=== PATIENT | female | born 1950 | race Caucasian/White ===

== ENCOUNTER 2024-04-28 12:45 | Inpatient (IN) | payer OTHER ==
[~2024-04-28] VITALS: Ht 167.6 cm; Wt 89.9 kg
[2024-04-28 13:27] VITALS: PULSE 117; RESP 16; O2SAT 95
[2024-04-28 13:55] LABS: Basophils # (auto) 0 10 ^3/uL (0-0.2); Basophils % (auto) 0.4 % (0.0-2.0); Eosinophils # (auto) 0.1 10 ^3/uL (0-0.8); Eosinophils % (auto) 2.3 % (0.0-7.0); Hematocrit 41.5 % (36.0-46.0); Hemoglobin 14.3 g/dL (12.2-16.2); Lymphocytes # (auto) 1.1 10 ^3/uL (0.4-5.4); Lymphocytes % (auto) 19.6 % (10.0-50.0); Mean Corpuscular Hemoglobin 32.2 pg (28.0-32.0); Mean Corpuscular Hgb Conc. 34.3 g/dL (32.0-36.0); Mean Corpuscular Volume 93.9 fL (80.0-100.0); Monocytes # (auto) 0.3 10 ^3/uL (0-1.3); Monocytes % (auto) 5.9 % (0.0-12.0); Neutrophils # (auto) 4.2 10 ^3/uL (1.6-8.6); Neutrophils % (auto) 71.8 % (37.0-80.0); Nucleated Red Blood Cells % 0.2 %; Platelet Count (auto) 192 10^3/uL (140-450); Red Blood Cells 4.42 10^6/uL (4.0-5.20); Red Cell Distribution Width 13.1 % (11.8-14.3); White Blood Cell 5.8 10^3/uL (4.4-10.8)
[2024-04-28] MEDS: dilTIAZem 25 MG/5 ML VIAL IV ONE ×2 (13:59→15:39)
[2024-04-28 14:10] LABS: INR 1.22 (0.9-1.15); Partial Thromboplastin Time 29.3 SEC (24.5-34.5); Prothrombin Time 12.7 sec (9.3-11.8)
[2024-04-28 14:14] LABS: Alanine Aminotransferase 12 U/L (7-40); Albumin 4.1 g/dL (3.2-4.8); Alkaline Phosphatase 75 U/L (46-116); Anion Gap 8 (5-15); Aspartate Aminotransferase 14 U/L (13-40); BUN/Creatinine Ratio 15.3 (10.0-20.0); Bilirubin, Total 1.1 mg/dL (0.2-1.0); Blood Urea Nitrogen 17 mg/dL (9-23); Calcium 9.1 mg/dL (8.7-10.4); Carbon Dioxide 22 mmol/L (20-30); Chloride 111 mmol/L (98-107); Glucose 134 mg/dL (74-106); Magnesium 1.8 mg/dL (1.6-2.6); Potassium 4.2 mmol/L (3.5-5.1); Sodium 141 mmol/L (136-145); Total Protein 6.2 g/dL (5.7-8.2)
[2024-04-28] MEDS: SODIUM CHLORIDE 0.9% 1,000 ML IV ONE (15:39)
[2024-04-28] MEDS ORDERED: HYDROcodone-ACET 5/325MG TAB PO PRN (19:15)
[2024-04-28] MEDS ORDERED: DOCUSATE SOD 100 MG CAP PO PRN (19:15)
[2024-04-28] MEDS ORDERED: HYDROmorphone HCL 2 MG/ML VL/or syr IV PRN (19:15)
[2024-04-28] MEDS ORDERED: ACETAMINOPHEN 325 MG TAB PO PRN (19:15)
[2024-04-28] MEDS ORDERED: ONDANSETRON HCL 4 MG/2 ML VIAL IV PRN (19:15)
[2024-04-28] MEDS ORDERED: dilTIAZem 25 MG/5 ML VIAL IV PRN (19:30)
[2024-04-28 19:35] VITALS: PULSE 89; RESP 16; O2SAT 97
[2024-04-28] MEDS: APIXABAN 5 MG TAB PO SCH (22:16)
[2024-04-28] MEDS: SODIUM CHLOR 0.9% PF (SALINE LOCK) 10ML VIAL/SYR IV SCH (22:18)
[2024-04-28 22:37] VITALS: PULSE 87; RESP 20; O2SAT 97
[2024-04-28 22:38] VITALS: BP 111/64; PULSE 87; RESP 20; TEMP 97.6; O2SAT 97
[2024-04-28] MEDS ORDERED: EZET-10 PO (23:59)
[2024-04-28] MEDS ORDERED: FESO4TAB3 PO (23:59)
[2024-04-28] MEDS ORDERED: ALEN70TA74 PO (23:59)
[2024-04-28] MEDS ORDERED: ALBU108A5 INH (23:59)
[2024-04-28] MEDS ORDERED: APIX5TAB PO (23:59)
[2024-04-28] MEDS ORDERED: LISI20TA56 PO (23:59)
[2024-04-28] MEDS ORDERED: ASPI-543 PO (23:59)
[2024-04-28] MEDS ORDERED: CETI10TA2 PO (23:59)
[2024-04-28] MEDS ORDERED: METO-158 PO (23:59)
[2024-04-28] MEDS ORDERED: ROSU20TA56 PO (23:59)
[2024-04-28] MEDS ORDERED: NITR100C6 PO (23:59)
[2024-04-28] MEDS ORDERED: FAMO-12 PO (23:59)
[2024-04-29] VITALS (7 sets, daily range): BP systolic 108–127; BP diastolic 46–78; PULSE 69–94; RESP 16–20; TEMP 97.6–98.9; O2SAT 94–99
[2024-04-29 06:28] LABS: Basophils # (auto) 0 10 ^3/uL (0-0.2); Basophils % (auto) 0.6 % (0.0-2.0); Eosinophils # (auto) 0.2 10 ^3/uL (0-0.8); Eosinophils % (auto) 3.8 % (0.0-7.0); Hematocrit 37.1 % (36.0-46.0); Hemoglobin 12.9 g/dL (12.2-16.2); Lymphocytes # (auto) 1.7 10 ^3/uL (0.4-5.4); Lymphocytes % (auto) 38.8 % (10.0-50.0); Mean Corpuscular Hemoglobin 32.8 pg (28.0-32.0); Mean Corpuscular Hgb Conc. 34.8 g/dL (32.0-36.0); Mean Corpuscular Volume 94.2 fL (80.0-100.0); Monocytes # (auto) 0.3 10 ^3/uL (0-1.3); Monocytes % (auto) 7.5 % (0.0-12.0); Neutrophils # (auto) 2.1 10 ^3/uL (1.6-8.6); Neutrophils % (auto) 49.3 % (37.0-80.0); Nucleated Red Blood Cells % 0.3 %; Platelet Count (auto) 140 10^3/uL (140-450); Red Blood Cells 3.94 10^6/uL (4.0-5.20); Red Cell Distribution Width 13.1 % (11.8-14.3); White Blood Cell 4.3 10^3/uL (4.4-10.8)
[2024-04-29 06:50] LABS: Alkaline Phosphatase 64 U/L (46-116); Anion Gap 6 (5-15); BUN/Creatinine Ratio 15.1 (10.0-20.0); Blood Urea Nitrogen 11 mg/dL (9-23); Calcium 8.7 mg/dL (8.7-10.4); Carbon Dioxide 23 mmol/L (20-30); Chloride 113 mmol/L (98-107); Glucose 99 mg/dL (74-106); Potassium 3.6 mmol/L (3.5-5.1); Sodium 142 mmol/L (136-145)
[2024-04-29 06:51] LABS: Albumin 3.3 g/dL (3.2-4.8); Aspartate Aminotransferase 12 U/L (13-40); Bilirubin, Total 1.1 mg/dL (0.2-1.0); Total Protein 5.6 g/dL (5.7-8.2)
[2024-04-29 06:59] LABS: Alanine Aminotransferase 9 U/L (7-40)
[2024-04-29] MEDS ORDERED: ENOXAPARIN SOD 40 MG/0.4 ML SYRINGE SC SCH (10:00)
[2024-04-30 05:00] VITALS: BP 120/77; PULSE 95; RESP 16; TEMP 97.5; O2SAT 97
[2024-04-30 06:07] LABS: Basophils # (auto) 0 10 ^3/uL (0-0.2); Basophils % (auto) 0.6 % (0.0-2.0); Eosinophils # (auto) 0.2 10 ^3/uL (0-0.8); Eosinophils % (auto) 4.4 % (0.0-7.0); Hematocrit 38.5 % (36.0-46.0); Hemoglobin 13.6 g/dL (12.2-16.2); Lymphocytes # (auto) 1.5 10 ^3/uL (0.4-5.4); Lymphocytes % (auto) 39.2 % (10.0-50.0); Mean Corpuscular Hemoglobin 33.3 pg (28.0-32.0); Mean Corpuscular Hgb Conc. 35.3 g/dL (32.0-36.0); Mean Corpuscular Volume 94.2 fL (80.0-100.0); Monocytes # (auto) 0.3 10 ^3/uL (0-1.3); Monocytes % (auto) 7.1 % (0.0-12.0); Neutrophils # (auto) 1.9 10 ^3/uL (1.6-8.6); Neutrophils % (auto) 48.7 % (37.0-80.0); Nucleated Red Blood Cells % 0.1 %; Platelet Count (auto) 140 10^3/uL (140-450); Red Blood Cells 4.08 10^6/uL (4.0-5.20); White Blood Cell 3.8 10^3/uL (4.4-10.8)
[2024-04-30 06:10] LABS: Alanine Aminotransferase < 9 U/L (7-40); Albumin 3.6 g/dL (3.2-4.8); Alkaline Phosphatase 65 U/L (46-116); Anion Gap 8 (5-15); Aspartate Aminotransferase 10 U/L (13-40); BUN/Creatinine Ratio 14.1 (10.0-20.0); Blood Urea Nitrogen 11 mg/dL (9-23); Calcium 8.6 mg/dL (8.7-10.4); Carbon Dioxide 23 mmol/L (20-30); Chloride 112 mmol/L (98-107); Glucose 110 mg/dL (74-106); Potassium 3.5 mmol/L (3.5-5.1); Sodium 143 mmol/L (136-145)
[2024-04-30 06:11] LABS: Bilirubin, Total 0.9 mg/dL (0.2-1.0); Total Protein 5.8 g/dL (5.7-8.2)
[2024-04-30 08:00] VITALS: PULSE 80; RESP 18; O2SAT 96
[2024-04-30 09:00] VITALS: BP 104/68; PULSE 80; RESP 18; TEMP 97.9; O2SAT 96
[2024-04-30 13:00] VITALS: BP 131/93; RESP 18; TEMP 97.5; O2SAT 98
[2024-04-30 16:55] VITALS: BP 104/63; PULSE 95; RESP 16; TEMP 98.7; O2SAT 97
[2024-04-30 17:00] VITALS: BP 142/79; PULSE 90; RESP 18; TEMP 97.5; O2SAT 98
== END 2024-04-30 18:30 | disposition home or self-care (01) | DRG 551 ==
LOC: EDBD 12:45 → ER 12:45 → OVERFLOW 19:10 → WEST WING 21:48
PROVIDERS: ADMIT Internal Medicine; ATTEND Internal Medicine
DX: M54.50 Low back pain, unspecified (principal); N17.0 Acute kidney failure with tubular necrosis; I48.20 Chronic atrial fibrillation, unspecified; I10 Essential (primary) hypertension; I25.10 Atherosclerotic heart disease of native coronary artery without angina pectoris; Z98.1 Arthrodesis status; Z98.61 Coronary angioplasty status; Z82.49 Family history of ischemic heart disease and other diseases of the circulatory system; Z79.01 Long term (current) use of anticoagulants
CPT/HCPCS: 36415; 71045; 72131; 80053; 83735; 83880; 84484; 85025; 85610; 85730; 93005; 97110; 97163; 99291; G0378